=== PATIENT | male | born 1980 | race Caucasian/White ===

== ENCOUNTER 2021-01-19 14:45 | Emergency (ER) | payer OTHER ==
[~2021-01-19] VITALS: Ht 170.2 cm; Wt 79.8 kg
[2021-01-19 14:55] VITALS: BP 131/85
[2021-01-19] MEDS ORDERED: ZOLM2.5T31 PO (15:31)
--- NOTE | 2021-01-19 15:31 | PHYS DOC ---
Past History Past Medical History: Migraines, Other Additional Past Medical Histor: CLUSTER HEADACHES (EVA ALVARADO APRN) Past Surgical History: Other Additional Past Surgical Histo: NASAL SEPTUM 1 MONTH AGO (EVA ALVARADO APRN) Alcohol Use: None (EVA ALVARADO APRN) Adult General Chief Complaint Chief Complaint: HEADACHE HPI HPI Patient is a 40-year-old male presents to the emergency department complaining of running out of his sumatriptan nasal spray and tablets to treat his cluster headaches. Patient states he gets 1-3 cluster headaches daily and has been experiencing this for the past 3 years, patient states he sees a Dr. Jara at the local [facility] in clinic who treats him with triptan medications. Patient states that he is maxed out of what will allow him to have. Patient reports he currently has a headache that is resolving, reporting a normal presentation of his cluster headaches that started at a 4/10 pain on a 1- 10 pain scale just a few hours ago is now down to a 1/10 on a 1-10 pain scale, patient states he does not need to be treated with any medication at this time, patient states he is seeking an additional type of triptan medication that will cover. Patient denies any visual disturbances, homicidal or suicidal ideations, visual or auditory hallucinations, neck pain, chest pain, shortness of breath, recent fever or chills. Patient denies any neurological changes of his extremities. Patient denies any other physical complaints or physical concerns. (EVA ALVARADO APRN) Review of Systems Review of Systems 14 body systems of review of systems have been reviewed. See HPI for pertinent positives and negative responses, otherwise all other systems are negative, nonpertinent or noncontributory. (EVA ALVARADO APRN) Allergies Allergies Allergies Coded Allergies Type Severity Reaction Last Updated Verified No Known Drug Allergies 01/19/21 No (EVA ALVARADO APRN) Physical Exam Physical Exam Constitutional: Well developed, well nourished, no acute distress, non-toxic appearance. 40-year-old male in no apparent distress. HENT: Normocephalic, atraumatic, bilateral external ears normal, oropharynx moist, no oral exudates, nose normal. Oropharynx moist, pink, no tonsillar erythema or infectious process appreciated, no uvular edema. No lymphadenopathy of the head and neck appreciated. Eyes: PERRLA, EOMI, conjunctiva normal, no discharge. Neck: Normal range of motion, no tenderness, supple, no stridor. No meningismus signs, no nuchal rigidity, no C-spine spinal tenderness. Cardiovascular:Heart rate regular rhythm, heart sounds S1-S2 to auscultation. Lungs & Thorax: Bilateral breath sounds clear to auscultation all lung clement, no adventitious lung sounds appreciated. Abdomen: Bowel sounds normal, soft, no tenderness, no masses, no pulsatile masses. Skin: Warm, dry, no erythema, no rash. Back: No tenderness, no CVA tenderness. Extremities: No tenderness, no cyanosis, no clubbing, ROM intact, no edema. Neurologic: Alert and oriented X 3, normal motor function, normal sensory function, no focal deficits noted. Psychologic: Affect normal, judgement appears to have good insight and education of cluster headaches and headache management, mood normal. (EVA ALVARADO APRN) Current Patient Data Vital Signs Vital Signs Date Time Temp Pulse Resp B/P (MAP) Pulse Ox O2 Delivery O2 Flow Rate FiO2 01/19/21 14:55 98.2 63 20 131/85 (100) 99 Room Air (EVA ALVARADO APRN) EKG EKG [] (EVA ALVARADO APRN) Radiology/Procedures Radiology/Procedures [] (EVA ALVARADO APRN) Heart Score C/O Chest Pain: No Risk Factors: Risk Factors: DM, Current or recent (<one month) smoker, HTN, HLP, family history of CAD, obesity. Risk Scores: Risk Factors: DM, Current or recent (<one month) smoker, HTN, HLP, family history of CAD, obesity. (EVA ALVARADO APRN) Course & Med Decision Making Course & Med Decision Making Pertinent Labs and Imaging studies reviewed. (See chart for details) 40-year-old male, vital signs reviewed, presents to the emergency department with concerns of being out of his headache medications. Patient is also concerned that his insurance coverage will not allow him to have anymore for this month. Patient is asking if there would be a different triptan type medication he could take that his insurance company will cover. Patient examination was unremarkable, patient reports his cluster headache is now down to a 1/10 on a 1-10 pain scale and he is not requesting no requiring any pain medication for his cluster headache. After review of medication formulary, discussed with patient will trial Zomig 12 tablets, patient is to follow-up with his primary care doctor at the [facility] this Thursday. Patient gave verbal understanding of discharge home instructions, new triptan medication prescription, follow-up with PCP on Thursday, return to ER precautions or concerns, was discharged home without incident. (EVA ALVARADO APRN) Course & Med Decision Making I oversaw on the above date of service of this patient and discussed the care with the SOFTWARE APPLICATIONS DESIGNER. It was advised that patient resume home triptan medication and follow-up with PCP and neurologist but he was adamant for medication change.I agree with the findings, plan of care, and disposition as documented. Electronically signed, Ivory Cárdenas DO (IVORY CÁRDENAS DO) Brianda Disclaimer Dragon Disclaimer This electronic medical record was generated, in whole or in part, using a voice recognition dictation system. (EVA ALVARADO APRN) Departure Departure: Impression: Primary Impression: Cluster headache syndrome, not intractable Disposition: 01 DC HOME SELF CARE/HOMELESS Condition: GOOD Referrals: RONDA JARA-MANDO (PCP) Patient Instructions: Cluster Headache Additional Instructions: I investigated the formulary and found sumatriptan is covered, I am starting you on sumatriptan however you need to see your neurology doctor at the [facility] this Thursday for ongoing authorization of triptan medications. Please return to the emergency department for worsening symptoms or other concerns. EMERGENCY DEPARTMENT GENERAL DISCHARGE INSTRUCTIONS Thank you for coming to [facility] (ED) today and trusting us with you care. We trust that you had a positivie experience in our Emergency Department. If you wish to speak to the department management, you may call the director at [phone]. YOUR FOLLOW UP INSTRUCTIONS ARE FOLLOWS: 1. Do you have a private Doctor? If you do not have a private doctor, please ask for a resource list of physicians or clinics that may be able to assist you with follow up care. 2. The Emergency Physician has interpreted your x-rays. The X-Ray specialist will also review them. If there is a change in the findings, you will be notified in 48 hours when at all possible. 3. A lab test or culture has been done, your results will be reviewed and you will be notified if you need a change in treatment. ADDITIONAL INSTRUCTIONS AND INFORMATION: 1. Your care today has been supervised by a physician who is specially trained in emergency care. Many problems require more than one evaluation for a complete diagnosis and treatment. We recommend that you schedule your follow up appointment as recommended to ensure complete treatment of you illness or injury. If you are unable to obtain follow up care and continue to have a problem, or if your condition worsens, we recommend that you return to the ED. 2. We are not able to safely determine your condition over the phone nor are we able to give sound medical advice over the phone. For these safety reasons, if you call for medical advice we will ask you to come to the ED for further evaluation. 3. If you have any questions regarding these discharge instructions please call the ED at [phone]. SAFETY INFORMATION: In the interest of safety, wellness, and injury prevention; we encourage you to wear your sealbelt, if you smoke; quite smoking, and we encourage family to use a protective helmet for bicycling and other sporting events that present an increased risk for head injury. IF YOUR SYMPTOMS WORSEN OR NEW SYMPTOMS DEVELOP, OR YOU HAVE CONCERNS ABOUT YOUR CONDITION; OR IF YOUR CONDITION WORSENS WHILE YOU ARE WAITING FOR YOUR FOLLOW UP APPOINTMENT; EITHER CONTACT YOUR PRIMARY CARE DOCTOR, THE PHYSICIAN WHOSE NAME AND NUMBER YOU WERE GIVEN, OR RETURN TO THE ED IMMEDIATELY. Scripts Zolmitriptan (ZOLMITRIPTAN) 2.5 Mg Tablet 1 TAB PO BID for cluster headache for 30 Days, #12 TAB 0 Refills Prov: EVA ALVARADO APRN 01/19/21 Problem Qualifiers Primary Impression: Cluster headache syndrome, not intractable Headache chronicity pattern: episodic headache Qualified Codes: G44.019 - Episodic cluster headache, not intractable EVA ALVARADO APRN Jan 19, 2021 15:31 IVORY CÁRDENAS DO Jan 21, 2021 06:42
== END 2021-01-19 15:40 | disposition home or self-care (01) ==
LOC: ER 14:45
DX: G44.009 Cluster headache syndrome, unspecified, not intractable (principal)
CPT/HCPCS: 99283